=== PATIENT | male | born 1955 | race Caucasian/White ===

== ENCOUNTER → 2020-12-18 14:34 | Outpatient (CLI) | payer MEDICARE, SELFPAY ==
[2020-12-18 18:10] LABS: AST(SGOT) 15 U/L (15-37); Alanine Aminotransfer ALT/SGPT 27 U/L (16-61); Albumin, Serum 3.8 g/dL (3.2-5.0); Alkaline Phosphatase 73 U/L (45-117); Bilirubin, Direct 0.09 mg/dL (0.00-0.30); Globulin 4.2 g/dL (2.2-4.2)
== END ==
PROVIDERS: PCP Family Medicine; Referring Provider Podiatrist; Visit Provider Podiatrist
DX: B35.1 Tinea unguium (principal)
CPT/HCPCS: 36415; 80076